=== PATIENT | male | born 1950 | race Caucasian/White ===

== ENCOUNTER 2022-07-07 07:04 | Inpatient (IN) | payer MEDICARE, OTHER ==
[2022-07-07] MEDS ORDERED: Dextrose 5%-0.9% NaCl 1,000 ML IV SCH (07:45)
[2022-07-07] MEDS ORDERED: Acetaminophen 650 MG Supp RECTAL STA (07:49)
[2022-07-07 10:34] LABS: CORONAVIRUS COVID-19 NAA POSITIVE (NEGATIVE)
[2022-07-07] MEDS ORDERED: Dextrose 5%-0.9% NaCl with KCl 1,000 ML IV SCH (12:30)
[2022-07-07] MEDS ORDERED: Acetaminophen 650 MG Supp RECTAL ONE (12:30)
[2022-07-07] MEDS ORDERED: Morphine 2 MG/ML SYRINGE IVPUSH PRN (14:31)
[2022-07-07] MEDS ORDERED: Albuterol/Ipratropium 3.0-0.5 MG/3 ML Neb Soln NEB PRN (14:31)
[2022-07-07] MEDS ORDERED: REMDESIVIR 200 MG in Sodium Chloride 0.9% 250 ML IV ONE (15:30)
[2022-07-07] MEDS: LORazepam 2 MG/ML SDV IVPUSH PRN (17:07)
[2022-07-08] MEDS: Lactated Ringers 1,000 ML IV SCH (17:00)
[2022-07-08] MEDS ORDERED: Acetaminophen 325 MG Tab PO PRN ×2 (17:19→17:24)
[2022-07-09] MEDS: Lactated Ringers 1,000 ML IV SCH ×2 (04:37→16:57)
[2022-07-09] MEDS ORDERED: Acetaminophen Soln 650 MG/20.3 ML UD Cup PO PRN (17:29)
[2022-07-10] MEDS: Lactated Ringers 1,000 ML IV SCH (06:40)
[2022-07-10] MEDS: LORazepam 2 MG/ML SDV IVPUSH PRN ×2 (08:48→17:24)
[2022-07-10] MEDS: QUEtiapine 25 MG Tab PO SCH ×2 (10:01→22:28)
[2022-07-10] MEDS ORDERED: Donepezil 10 MG Tab PO SCH (21:00)
[2022-07-10] MEDS: Memantine 10 MG Tab PO SCH (22:28)
[2022-07-11] MEDS: DULoxetine 20 MG Cap PO SCH ×2 (08:24→08:29)
[2022-07-11] MEDS: Memantine 10 MG Tab PO SCH ×2 (08:24→08:29)
[2022-07-11] MEDS: QUEtiapine 25 MG Tab PO SCH ×2 (08:25→08:29)
== END 2022-07-11 15:30 | DRG 177 ==
LOC: JD.ED 07:04 → JD.MS 13:49
PROVIDERS: ADMIT Internal Medicine; ATTEND Internal Medicine
PROC: 8E0ZXY6 Isolation (ICD-10-PCS; principal; 2022-07-07)
DX: U07.1 COVID-19 (principal); R09.02 Hypoxemia; G30.9 Alzheimer's disease, unspecified; F02.B0 Dementia in other diseases classified elsewhere, moderate, without behavioral disturbance, psychotic disturbance, mood disturbance, and anxiety; J96.01 Acute respiratory failure with hypoxia; F02.C18 Dementia in other diseases classified elsewhere, severe, with other behavioral disturbance; J98.11 Atelectasis; G30.0 Alzheimer's disease with early onset; Z66 Do not resuscitate; Z51.5 Encounter for palliative care; Z79.82 Long term (current) use of aspirin; Z79.899 Other long term (current) drug therapy; Z87.01 Personal history of pneumonia (recurrent)
CPT/HCPCS: 0240U; 36415; 70450; 71045; 80053; 81001; 83605; 83735; 83880; 84484; 85007; 85027; 85610; 85730; 86140; 87040; 87641; 93005; 94762; A9270-GY; J2060; J3480; J7042; J7120